=== PATIENT | male | born 1980 | race Caucasian/White ===

== ENCOUNTER 2016-08-27 07:00 | Emergency (ER) | payer SELFPAY ==
[~2016-08-27] VITALS: Ht 165.1 cm; Wt 60.5 kg
[2016-08-27 07:10] VITALS: BP 128/81
[2016-08-27] MEDS ORDERED: ONDANSETRON 2MG/ML, 2ML IVPush ONE (08:00)
[2016-08-27] MEDS ORDERED: KETOROLAC 30 MG/1 ML IVPush ONE (08:00)
[2016-08-27] MEDS ORDERED: SODIUM CHLORIDE 0.9% 1,000ML IVBOLUS ONE (08:00)
[2016-08-27] MEDS ORDERED: ONDANSETRON 2MG/ML, 2ML ONE (08:04)
[2016-08-27] MEDS ORDERED: KETOROLAC 30 MG/1 ML ONE (08:04)
[2016-08-27 08:27] LABS: BLOOD UREA NITROGEN 8 mg/dL (7-18)
== END 2016-08-27 08:57 | disposition home or self-care (01) ==
LOC: ED 08:51
DX: K04.7 Periapical abscess without sinus (principal); R05 Cough; R09.81 Nasal congestion; R11.2 Nausea with vomiting, unspecified
CPT/HCPCS: 36415; 71020; 80048; 82040; 85025; 96361; 96374; 96375; 99285; J1885; J2405; J7030

== ENCOUNTER 2017-01-19 13:24 | Emergency (ER) | payer MEDICAID, OTHER ==
[~2017-01-19] VITALS: Ht 165.1 cm; Wt 61.5 kg
[2017-01-19 13:36] VITALS: BP 102/67
[2017-01-19] MEDS ORDERED: HYDROcodone/APAP 5/325 TABLET ONE (14:09)
[2017-01-19] MEDS ORDERED: HYDROcodone/APAP 5/325 TABLET PO ONE (14:30)
== END 2017-01-19 14:36 | disposition home or self-care (01) ==
LOC: ED 14:07
DX: M25.532 Pain in left wrist (principal); G89.11 Acute pain due to trauma
CPT/HCPCS: 29125; 99283

== ENCOUNTER 2017-02-06 10:24 | Emergency (ER) | payer MEDICAID ==
[~2017-02-06] VITALS: Ht 165.1 cm; Wt 61.0 kg
[2017-02-06 10:25] VITALS: BP 112/72
[2017-02-06] MEDS ORDERED: HYDROcodone/APAP 5/325 TABLET ONE (11:50)
[2017-02-06] MEDS ORDERED: HYDROcodone/APAP 5/325 TABLET PO ONE (12:00)
== END 2017-02-06 12:30 | disposition home or self-care (01) ==
LOC: ED 12:22
DX: K08.89 Other specified disorders of teeth and supporting structures (principal)
CPT/HCPCS: 99283

== ENCOUNTER 2018-07-22 10:59 | Emergency (ER) | payer MEDICAID ==
[~2018-07-22] VITALS: Ht 167.6 cm; Wt 68.0 kg
[2018-07-22 11:10] VITALS: BP 113/50
[2018-07-22] MEDS ORDERED: KETOROLAC 30 MG/1 ML ONE (11:54)
[2018-07-22] MEDS ORDERED: DIAZEPAM 5 MG TABLET ONE (11:54)
[2018-07-22] MEDS ORDERED: DIAZEPAM 5 MG TABLET PO ONE (12:00)
[2018-07-22] MEDS ORDERED: KETOROLAC 30 MG/1 ML IM ONE (12:00)
== END 2018-07-22 13:02 | disposition left against medical advice (07) ==
LOC: ED 12:13
DX: S39.012A Strain of muscle, fascia and tendon of lower back, initial encounter (principal); S33.5XXA Sprain of ligaments of lumbar spine, initial encounter; X50.0XXA Overexertion from strenuous movement or load, initial encounter; Y93.89 Activity, other specified; Y92.89 Other specified places as the place of occurrence of the external cause; Y99.8 Other external cause status
CPT/HCPCS: 72110; 96372; 99283; J1885

== ENCOUNTER 2020-06-13 16:27 | Emergency (ER) | payer BC, OTHER ==
[~2020-06-13] VITALS: Ht 167.6 cm; Wt 62.6 kg
--- NOTE | 2020-06-13 17:16 | NUR ---
Pt presents with sore throat, scabbing and dry lips, and red pinpoint rash on both lower arms. Pt denies allergies, states that he does have a cough and stuffy nose which is making him breath through his mouth and further irritating his throat. Connected to BP and O2 monitors, given warm blanket for comfort. JOANA SCHAEFER. Friend at bedside.
[2020-06-13] MEDS ORDERED: ONDANSETRON ODT 4 MG ONE (17:43)
[2020-06-13] MEDS ORDERED: HYDROcodone/APAP 5/325 TABLET ONE (17:44)
--- NOTE | 2020-06-13 17:49 | NUR ---
PT MEDICATED PER MAR
[2020-06-13] MEDS ORDERED: HYDROcodone/APAP 5/325 TABLET PO ONE (18:00)
[2020-06-13] MEDS ORDERED: ONDANSETRON ODT 4 MG PO ONE (18:00)
[2020-06-13 18:14] VITALS: BP 103/73
--- NOTE | 2020-06-13 18:15 | NUR ---
MIC RN: PT IS A&O X4. VS STABLE. PT HAS A RIDE HOME. PT VERBALIZES DISCHARGE INSTRUCTIONS. PT DISCHARGED PER RUPINDER SARAVIA.
== END 2020-06-13 18:20 | disposition home or self-care (01) ==
LOC: ED 18:10
DX: B34.9 Viral infection, unspecified (principal); J02.9 Acute pharyngitis, unspecified; R05 Cough; R09.81 Nasal congestion
CPT/HCPCS: 99283; Q0162